=== PATIENT | male | born 1945 | race Caucasian/White ===

== ENCOUNTER 2017-07-10 10:15 | Day surgery (SDC) | payer BC ==
[2017-07-09 12:31] VITALS: BP 134/54
[2017-07-09 13:28] LABS: HEMATOCRIT 43.7 % (39.2-51.8); HEMOGLOBIN 14.5 g/dL (13.7-18.0); WHITE BLOOD COUNT 8.6 x10^3/uL (3.4-10)
[2017-07-09 13:41] LABS: ASPARTATE AMINO TRANSFERASE 12 U/L (15-37); BLOOD UREA NITROGEN 15 mg/dL (7-18)
[~2017-07-10] VITALS: Ht 177.8 cm; Wt 129.5 kg
[~2017-07-10 10:15] MED LIST: ALBU8.5H8 INH; ASPI-496 PO; BUPR-173 PO; BUTA-177 PO; CHOL10003 PO; CITA40TA5 PO; CYCL-259 PO; FLUT16SP NAS; GABA300C10 PO; HYDR-3240 PO; LISI1TAB5 PO; LORA1TAB PO; METO-95 PO; NITR0.4T28 SL; OMEP-110 PO; SIMV40TA3 PO; TAMS0.4C2 PO; TOPI25TA8 PO; VITA1CAP PO
[2017-07-10] MEDS ORDERED: SODIUM CHLORIDE 0.9% 1,000 ML IV SCH (10:43)
[2017-07-10] MEDS ORDERED: NITROGLYCERIN 5 MG/ML, 10ML ONE (12:15)
[2017-07-10] MEDS ORDERED: VERAPAMIL 2.5 MG/ML, 2ML ONE (12:15)
[2017-07-10] MEDS ORDERED: FENTANYL PF 100 MCG/2ML ONE ×2 (12:15→12:55)
[2017-07-10] MEDS ORDERED: MIDAZOLAM 1 MG/ML, 5ML ONE (12:15)
[2017-07-10] MEDS ORDERED: BIVALIRUDIN 250 MG ONE (12:16)
[2017-07-10] MEDS ORDERED: HEPARIN 1,000 UNITS/ML, 10ML ONE (12:16)
[2017-07-10] MEDS ORDERED: LIDOCAINE 2%, 20ML ONE (12:16)
[2017-07-10] MEDS ORDERED: TICAGRELOR 90 MG TABLET ONE (12:16)
[2017-07-10] MEDS ORDERED: DIPHENHYDRAMINE 50 MG/ML, 1ML ONE (12:51)
== END 2017-07-10 15:30 | disposition home or self-care (01) ==
LOC: CACL 10:15
PROVIDERS: ATTEND Internal Medicine Cardiovascular Disease
DX: I25.119 Atherosclerotic heart disease of native coronary artery with unspecified angina pectoris (principal); I10 Essential (primary) hypertension; E78.5 Hyperlipidemia, unspecified; J44.9 Chronic obstructive pulmonary disease, unspecified; Z95.5 Presence of coronary angioplasty implant and graft; Z79.82 Long term (current) use of aspirin
CPT/HCPCS: 36415; 80053; 80061; 83036; 85025; 85610; 85730; 93458; 99156; C1894; J1200; J1644; J2250; J3010; J3490; Q9967; J0583